=== PATIENT | female | born 1980 | race African-American/Black ===

== ENCOUNTER 2023-03-16 22:19 | Emergency (ER) | payer BC, SELFPAY ==
--- NOTE | ~2023-03-16 | XR_ITS ---
EXAMINATION: XR hip RT 2V w AP pelvis DATE: 03/16/2023 22:43 INDICATION: Fall. TECHNIQUE: An anteroposterior view of the pelvis and 2 views of right hip were obtained. COMPARISON: None. FINDINGS: There is lumbar levocurvature. No fracture. There is mild osteoarthritis of the hips. IMPRESSION: 1. Mild osteoarthritis of the hips. Reviewed, dictated and finalized at location E. [facility]ACH
[2023-03-16 22:28] VITALS: BP 119/79; PULSE 96; RESP 20; TEMP 36.9; O2SAT 100
--- NOTE | 2023-03-17 02:07 | ED.FALL ---
HPI - Fall General Chief Complaint: Fall Stated Complaint: fall, hip pain Time Seen by Provider: 03/17/23 01:29 Source: patient Limitations: no limitations History of Present Illness HPI Narrative: Patient is a 42-year-old female presents to the emergency department complaining fall with right hip pain. Patient states Wednesday night she was going to get out of bed and she was at the end of the bed and mistakenly fell landing on her right hip has been having right hip pain ever since. Patient denies hitting her head or having loss of consciousness. Patient admits to being her normal state health otherwise without any recent illness or recent fevers and has been urinating well without any discomfort and having regular bowel movements. Patient denies numbness or weakness. Patient admits to being ambulatory with some mild discomfort of her right hip with ambulation. First day of last menstrual period was March 05. Patient admits to taking Motrin for the pain with her last dose being 12 hours ago. Patient denies any history of injuries to her right hip. Related Data Allergies Allergy/AdvReac Type Severity Reaction Status Date / Time No Known Allergies Allergy Mild Verified 03/16/23 22:35 Review of Systems Review of Systems: A 10 system review of systems was completed on the patient and is negative except for what is stated in the HPI. Nursing and ancillary documentation was reviewed. PMFSH Comments At time of signature, I have reviewed and agree with nursing past medical, surgical, social and family history unless otherwise noted. Please see the nursing chart for further information. There is no relevant family history pertinent to the presenting complaint. Exam Narrative: CONST: No acute distress. Well nourished. HENMT: Head is normocephalic and atraumatic. Moist mucous membranes. EYES: No conjunctival icterus, injection, or pallor. RESP: Able to speak in full sentences. Normal respiratory effort. CARDIO: Regular rate. Regular rhythm. 2+ DP pulses bilaterally. GI: Nondistended. SKIN: No rashes or lesions noted on exposed skin. NEURO: Oriented x3. Moves all extremities. No focal neurological deficits. EXTREM/MSK/BACK: No pedal edema. Mild tenderness to palpation over the right iliac crest without overlying skin changes. No tenderness to palpation of the right great trochanter. No tenderness palpation or deformities of the bilateral lower extremities. Motor strength is 5/5 bilateral lower extremities. No midline vertebral tenderness to palpation or step-offs. PSYCH: Normal affect. Course Vital Signs Vital signs: Vital Signs Temperature 98.5 F 03/16/23 22:28 Pulse Rate 96 03/16/23 22:28 Respiratory Rate 20 03/16/23 22:28 Blood Pressure 119/79 03/16/23 22:28 Pulse Oximetry 100 03/16/23 22:28 Oxygen Delivery Room Air 03/16/23 22:28 Temperature 98.5 F 03/16/23 22:28 Pulse Rate 96 03/16/23 22:28 Respiratory Rate 20 03/16/23 22:28 Blood Pressure 119/79 03/16/23 22:28 Pulse Oximetry 100 03/16/23 22:28 Oxygen Delivery Room Air 03/16/23 22:28 MDM - Fall MDM Narrative Medical decision making narrative: Patient presents with the above complaint. Initial vitals are remarkable for no significant abnormalities. Physical examination as noted above. Plan discussed: Right hip and pelvis x-ray, [place], Toradol. Patient denies drive to the emergency department today. Counseled patient regarding diagnostic results and potential diagnosis. Anticipatory guidance provided. Patient instructed to follow up with PCP within 1 week. Patient counseled on: false reassurance from an emergency department evaluation; no current evidence of a medical emergency; return immediately for any new, recurrent, worsening, concerning, or refractory symptoms. Patient prescribed Tylenol and Motrin. Prescription sent to preferred pharmacy. Medications discussed with patient. Additional verbal and prin
[2023-03-17] MEDS: HYDROcodone/acetaminophen (*CRX) 5-325 MG TABLET 1 TAB PO (02:36)
[2023-03-17] MEDS: KETOROLAC 30 MG/ML VIAL (*BKC) 15 MG IM (02:36)
[2023-03-17 02:41] VITALS: BP 123/75; PULSE 89; RESP 15; O2SAT 100
== END 2023-03-17 02:43 | disposition home or self-care (01) ==
PROVIDERS: Emergency Provider Student in an Organized Health Care Education/Training Program
DX: S70.01XA Contusion of right hip, initial encounter (principal); W06.XXXA Fall from bed, initial encounter
CPT/HCPCS: 73502; 96372; 99283; A9270; J1885